=== PATIENT | female | born 1950 | race Caucasian/White ===

== ENCOUNTER → 2018-11-16 | Outpatient (CLI) | payer BC | END | disposition home or self-care (01) | LOC: RAH 12:09 | PROVIDERS: ATTEND Family Medicine | DX: M48.02 Spinal stenosis, cervical region (principal); M47.812 Spondylosis without myelopathy or radiculopathy, cervical region | CPT/HCPCS: 72040 ==

== ENCOUNTER → 2020-03-05 | Outpatient (CLI) | payer BC | END | disposition home or self-care (01) | LOC: OIH 14:22 | PROVIDERS: ATTEND Family Medicine | DX: M18.9 Osteoarthritis of first carpometacarpal joint, unspecified (principal); M79.644 Pain in right finger(s) | CPT/HCPCS: 73130 ==

== ENCOUNTER → 2021-01-02 | Outpatient (CLI) | payer OTHER | END | disposition home or self-care (01) | LOC: OIH 08:05 | PROVIDERS: ATTEND Family Medicine | DX: Z13.6 Encounter for screening for cardiovascular disorders (principal) | CPT/HCPCS: 75571 ==

== ENCOUNTER → 2021-12-09 | Outpatient (CLI) | payer BC | END | disposition home or self-care (01) | LOC: RAH 09:37 | PROVIDERS: ATTEND Physician Assistant | DX: M47.812 Spondylosis without myelopathy or radiculopathy, cervical region (principal); M25.552 Pain in left hip; M54.2 Cervicalgia; M48.02 Spinal stenosis, cervical region | CPT/HCPCS: 72050; 73080 ==

== ENCOUNTER → 2022-06-13 | Outpatient (CLI) | payer BC ==
[~2022-06-13] MED LIST: ASPI-1026 PO; CALC-190 PO; CVS PO; ESCI20TA38 PO; FISH1CAP20 PO; LEVO50TA6 PO; LIDOCAINE HCL MDV 0.5% 50ML VIAL IJ ONE; LIOT25TA12 PO; MV-M1TAB20 PO; POTA-183 PO; VANCOMYCIN 1G/250ML KIT 250 ML IV ONE
== END | disposition home or self-care (01) ==
LOC: RAH 10:02
PROVIDERS: ATTEND Physical Medicine & Rehabilitation
DX: D21.9 Benign neoplasm of connective and other soft tissue, unspecified (principal); M25.511 Pain in right shoulder; M25.711 Osteophyte, right shoulder
CPT/HCPCS: 73030

== ENCOUNTER 2022-06-15 06:05 | Day surgery (SDC) | payer BC ==
[2022-06-13 10:59] LABS: BASOPHILS % (AUTO) 0.5 % (0.0-5.0); EOSINOPHILS % (AUTO) 0.9 % (0.0-8.0); HEMATOCRIT 44.1 % (36-48); MEAN CORPUSCULAR HEMOGLOBIN 31.3 pg (27.0-33.0); MEAN CORPUSCULAR HGB CONC 32.9 g/dL (32.0-36.0); MONOCYTES % (AUTO) 6.8 % (3.0-13.0); NEUTROPHILS % (AUTO) 57.3 % (40.0-77.0); PLATELET COUNT (AUTO) 353 K/uL (130-400); RED BLOOD CELL COUNT(AUTO) 4.64 MIL/uL (4.00-5.50); RED CELL DISTRIBUTION WIDTH 12.4 % (11.0-15.5); WHITE BLOOD COUNT (AUTO) 5.6 K/uL (4.8-10.8)
[2022-06-13 11:12] LABS: CREATININE 0.7 mg/dL (0.5-1.5); POTASSIUM 4.3 mmol/L (3.5-5.1)
[2022-06-13 16:38] VITALS: BP 140/57
[2022-06-15] VITALS (12 sets, daily range): BP systolic 127–147; BP diastolic 47–64
[~2022-06-15] VITALS: Ht 157.5 cm; Wt 56.8 kg
[~2022-06-15 06:05] MED LIST changes: +CLINDAMYCIN IVPB 900MG/50ML 50 ML IV SCH; -LIDOCAINE HCL MDV 0.5% 50ML VIAL IJ ONE; -VANCOMYCIN 1G/250ML KIT 250 ML IV ONE
[2022-06-15] MEDS ORDERED: LACTATED RINGERS 1000ML 1,000 ML IV ONE (06:32)
[2022-06-15] MEDS ORDERED: MIDAZOLAM HCL 1 MG/ML 2ML VIAL ONE (07:00)
[2022-06-15] MEDS ORDERED: FENTANYL CITRATE PF 50 MCG/1 ML 2ML VIAL ONE (07:01)
[2022-06-15] MEDS ORDERED: VANCOMYCIN 1G/250ML KIT 250 ML IV SCH (07:30)
[2022-06-15] MEDS ORDERED: VANCOMYCIN 1G VIAL IVPB ONE (07:34)
[2022-06-15] MEDS ORDERED: ONDANSETRON 4MG INJ ONE (07:46)
== END 2022-06-15 09:35 | disposition home or self-care (01) ==
LOC: DAH 06:05
PROVIDERS: ATTEND Neurological Surgery
DX: G56.01 Carpal tunnel syndrome, right upper limb (principal); Z20.822 Contact with and (suspected) exposure to COVID-19; Z79.82 Long term (current) use of aspirin; Z79.899 Other long term (current) drug therapy; Z98.890 Other specified postprocedural states; Z90.710 Acquired absence of both cervix and uterus; Z88.0 Allergy status to penicillin; Z91.041 Radiographic dye allergy status; Z79.890 Hormone replacement therapy; Z79.01 Long term (current) use of anticoagulants
CPT/HCPCS: 80048; 85025; 87426; 36415; 64721; A6260; A4663; J7120 ×2; J3370; J3010; J2250; J2405; A4215; A4223; A4222; A4221

== ENCOUNTER → 2022-07-04 | Outpatient (CLI) | payer BC ==
[~2022-07-04] MED LIST changes: -CLINDAMYCIN IVPB 900MG/50ML 50 ML IV SCH
== END | disposition home or self-care (01) ==
LOC: RAH 14:28
PROVIDERS: ATTEND Physical Medicine & Rehabilitation
DX: M47.812 Spondylosis without myelopathy or radiculopathy, cervical region (principal); M54.12 Radiculopathy, cervical region
CPT/HCPCS: 72141

== ENCOUNTER → 2023-03-17 | Outpatient (CLI) | payer BC ==
[~2023-03-17] MED LIST changes: +GADOTERATE MEGLUMINE 10 MMOL/20 ML VIAL IV ONE
== END | disposition home or self-care (01) ==
LOC: RAH 10:05
PROVIDERS: ATTEND Family Medicine
DX: R90.82 White matter disease, unspecified (principal); R41.82 Altered mental status, unspecified
CPT/HCPCS: 70553; A9575

== ENCOUNTER → 2023-05-24 | Outpatient (CLI) | payer BC ==
[~2023-05-24] MED LIST changes: -GADOTERATE MEGLUMINE 10 MMOL/20 ML VIAL IV ONE
== END | disposition home or self-care (01) ==
LOC: RAH 12:35
PROVIDERS: ATTEND Family Medicine
DX: M19.012 Primary osteoarthritis, left shoulder (principal); M25.512 Pain in left shoulder; M62.838 Other muscle spasm; M48.02 Spinal stenosis, cervical region
CPT/HCPCS: 72040; 73030

== ENCOUNTER → 2025-01-07 | Outpatient (CLI) | payer BC | END | disposition home or self-care (01) | LOC: RAH 08:41 | PROVIDERS: ATTEND Family Medicine | DX: Z12.31 Encounter for screening mammogram for malignant neoplasm of breast (principal) | CPT/HCPCS: 77067 ==